=== PATIENT | male | born 1950 | race African-American/Black ===

== ENCOUNTER 2019-03-24 12:06 | Observation (INO) ==
--- NOTE | 2019-03-24 13:28 | Diag Imaging Result Doc PS360 ---
EXAM: CHEST-1 VIEW HISTORY: weakness TECHNIQUE: Chest single view COMPARISON: 10/11/2017 FINDINGS: The lungs are well expanded. The heart is not enlarged. The vessels are not distended. There are no infiltrates. No effusion identified. IMPRESSION: Negative exam. Electronically signed by Anthony Lawson 03/24/2019 1:26 PM
[2019-03-24 13:42] LABS: BASO# 0.02 X1000 (0.0-0.2); BASO% 0.4 % (0.0-0.8); EOS# 0.03 X1000 (0.0-0.7); EOS% 0.5 % (0.0-10.0); HEMATOCRIT 29.1 % (42.0-52.0); HEMOGLOBIN 10.2 g/dL (14.0-18.0); IMM GRAN# 0.03 X1000 (0.0-0.04); IMM GRAN% 0.5 % (0.0-0.5); LYMPH# 2.93 X1000 (1.2-3.4); LYMPH% 51.3 % (20.5-51.1); MCH 32.6 PG (27-31); MCHC 35.1 g/dL (33-37); MONO# 0.57 X1000 (0.11-0.59); MPV 9.3 FL (7.4-10.4); NEUT# 2.13 X1000 (1.4-6.5); NEUT% 37.3 % (42.2-75.2); PLT 294 X1000 (130-400); RBC 3.13 XMIL (4.7-6.1); RDW 12.7 % (11.5-14.5); WBC 5.71 X1000 (4.8-10.8)
[2019-03-24 13:46] LABS: ALBUMIN 4.5 g/dL (3.5-5.0); CALCIUM 8.7 mg/dL (8.8-10.2); CREATININE 1.4 mg/dL (0.7-1.2); POTASSIUM 3.2 mmol/L (3.5-5.1); TOTAL BILIRUBIN 0.5 mg/dL (0.20-1.00); TOTAL PROTEIN 8.2 g/dL (6.3-8.3)
[2019-03-24 13:53] LABS: BILIRUBIN URINE NEGATIVE (NEGATIVE); BLOOD URINE NEGATIVE (NEGATIVE); CLARITY CLEAR (CLEAR); COLOR YELLOW; GLUCOSE URINE NEGATIVE (NEGATIVE); KETONE URINE NEGATIVE (NEGATIVE); LEUKOCYTES URINE 1+ (NEGATIVE); NITRITE URINE NEGATIVE (NEGATIVE); PH URINE 6.5; PROTEIN URINE NEGATIVE (NEGATIVE); URINE BACTERIA NEGATIVE /HFP; URINE CAST NONE SEEN /LPF; URINE CRYSTAL NONE SEEN /HPF; URINE EPITHELIAL CELLS <10 /HPF (<10); URINE RBC <10 /HPF (<10); URINE SOURCE CLEAN CATCH; URINE WBC <10 /HPF (<10); URINE YEAST NONE SEEN /HPF; UROBILINOGEN URINE NORMAL
--- NOTE | 2019-03-24 13:59 | EKG Report ---
Test Performed on : 03/24/2019 1:53:09 PM Test Reason : weakness Blood Pressure : / mmHG Vent. Rate : 065 BPM Atrial Rate : 065 BPM P-R Int : 134 ms QRS Dur : 092 ms QT Int : 408 ms P-R-T Axes : 069 -34 055 degrees QTc Int : 424 ms Normal sinus rhythm. Left axis deviation Abnormal ECG When compared with ECG of 06-APR-2017 21:26, No significant change was found Unconfirmed Result
[2019-03-24 14:03] LABS: UR AMPHETAMINES QUAL NONE DETECTED (NONE DETECT); UR BARBITUATES QUAL NONE DETECTED (NONE DETECT); UR BENZODIAZEPIN QUAL NONE DETECTED (NONE DETECT); UR CANNABINOIDS QUAL NONE DETECTED (NONE DETECT); UR COCAINE QUAL NONE DETECTED (NONE DETECT); UR METHADONE QUAL NONE DETECTED (NONE DETECT); UR METHAMPHETAMINE QUAL NONE DETECTED (NONE DETECT); UR OPIATES QUAL NONE DETECTED (NONE DETECT); UR OXYCODONE QUAL NONE DETECTED (NONE DETECT); UR PCP QUAL NONE DETECTED (NONE DETECT); UR PROPOXYPHENE QUAL NONE DETECTED (NONE DETECT); UR TCA QUAL NONE DETECTED (NONE DETECT)
[2019-03-24] MEDS ORDERED: NS 1,000 ML IV ONE (15:46)
--- NOTE | 2019-03-24 17:17 | PROVIDER DOCUMENTATION ---
This chart was entered by Page Bauer Scribe, acting as scribe for Jamal Camacho MD. HPI-General Adult - General Chief Complaint: Dizziness Stated Complaint: DIZZY Time Seen by Provider: 03/24/19 12:49 Source: patient Allergies/Adverse Reactions: Patient Allergies Allergy/AdvReac Type Severity Reaction Status Date / Time No Known Allergies Allergy Verified 04/06/17 20:36 Home Medications: Home Medication List Medication Instructions Recorded Confirmed Last Taken Type Megestrol Acetate [Megace Liquid] 400 mg PO BID 03/24/19 03/24/19 Unknown History Omeprazole [Prilosec] 20 mg PO DAILY 03/24/19 03/24/19 Unknown History Sulindac 150 mg PO BID 03/24/19 03/24/19 03/23/19 History Tamsulosin [Flomax] 0.4 mg PO DAILY 03/24/19 03/24/19 03/23/19 History Tizanidine HCl [Zanaflex] 4 mg PO DAILY 03/24/19 03/24/19 Unknown History - History of Present Illness -Gen Adult Nature of Presenting Problems: 68 yobm presents to the ed with c/o dizziness, nausea, blurry vision and generalized weakness intermittent for 1 week. pt on exam is a thin male that appears to be in no distress. pt sts dizziness is worsened by bending over Location of Pain/Injury: reports: none Pain Radiation: reports: no radiation Quality of Pain: reports: none Severity: reports: moderate Onset/Duration: reports: 1 week ago Timing: reports: intermittent Context/Activities at Onset: reports: light activity Modifying Factors: worse with: movement (change of position makes dizziness worse) Associated Symptoms: reports: dizziness, EENT symptoms, fatigue, nausea, weakness. denies: arm pain, back/neck pain, chest pain, cough, fever/chills, headaches, shortness of breath, syncope, vomiting, trouble walking Similar Symptoms Previously?: No Recently seen or treated by another doctor?: No Review of Systems - Adult - REVIEW OF SYSTEMS - ADULT Constitutional: reports: fox. denies: chills, fever Eyes: reports: see HPI, blurred vision Ears, Nose, Mouth & Throat: reports: no symptoms reported Cardiovascular: denies: chest pain, palpitations, syncope Respiratory: denies: shortness of breath, wheezing Gastrointestinal: reports: see HPI, nausea. denies: abdominal pain, diarrhea, vomiting Genitourinary: reports: no symptoms reported Musculoskeletal: reports: see HPI, other (genralized weakness). denies: back pain, neck pain Integumentary: reports: no symptoms reported Neurological: reports: see HPI, dizziness/vertigo. denies: ataxia, headache/migraines, loss of balance, numbness, paresthesia, seizure, slurred sp eech, syncope, tremors Psychiatric: reports: no symptoms reported Endocrine: reports: no symptoms reported Hematologic/Lymphatic: reports: no symptoms reported Allergic/Immunologic: reports: no symptoms reported All Other Systems: Reviewed and Negative Past History - Adult - PAST MEDICAL HISTORY-ADULT Review of Records: reports: Nursing Assessment Review, Medications Reviewed Major Childhood Illnesses: reports: denies history Cardiovascular: reports: denies history Respiratory: reports: denies history Gastrointestinal: reports: denies history Genitourinary: reports: denies history Musculoskeletal: reports: denies history Hand Dominance: Right Handed Neurological: reports: other (sx to head in past) Psychiatric: reports: denies history Endocrine/Immune: reports: denies history Other Conditions: reports: denies history - PRIOR SURGERIES/PROCEDURES Surgical/Procedure History: reports: other (nose/head surgery) - IMMUNIZATION STATUS Childhood Immunizations: See Nurse Assessment Flu Vaccine: See Nurse Assessment - FAMILY HISTORY Family History: reviewed, not pertinent - SOCIAL HISTORY Smoking: quit greater than 1 year Substance Use: alcohol Alcohol Use Frequency: every day Number of drinks per typical drinking period:: 3-4 drinks Living Situation: family Physical Exam-General - PHYSICAL EXAM-ADULT Initial Vital Signs Reviewed: Yes - CONSTITUTIONAL General Appearance: alert, no apparent distress, thin - EYES Eyes: PERRL/EOMI, pink conjunctivae - HEAD, EARS, NOSE, MOUTH & THROAT HENMT: moist mucous membranes, dental decay - NECK Neck: non-tender, full range of motion, supple, normal inspection - RESPIRATORY Respiratory: chest non-tender, lungs clear, normal breath sounds - CARDIOVASCULAR Cardiovascular: normal peripheral pulses, tachycardia (113) - GASTROINTESTINAL (ABDOMEN) Abdominal Exam: normal bowel sounds, non tender, soft - LYMPHATIC Lymphatic: no adenopathy - MUSCULOSKELETAL Back Exam: normal inspection, no CVA tenderness, no vertebral tenderness Extremity: normal range of motion, non-tender, normal gait, normal inspection, no pedal edema, no calf tenderness, normal capillary refill, pelvis stable - SKIN Integumentary: normal color, normal turgor - NEUROLOGIC Neurologic: hairmasters manager II-XII nml as tested, grossly normal, no motor/sensory deficits - PSYCHIATRIC Psych/Mental Status: normal mood/affect, normal thought content, normal thought process, oriented x 3 Progress - PLAN OF CARE/RESULTS Progress/Plan/Lab Results: Vital Signs - 8 hr 03/24/19 12:13 Temperature 98.3 F Pulse Rate 113 H Respiratory Rate 18 Blood Pressure 99/66 O2 Sat by Pulse Oximetry 97 Orders Category Date Time Status ED: Orthostatic Vital Signs (E DIRECTED Care 03/24/19 12:18 Active Finger Stick Blood Sugar (ED) DIRECTED Care 03/24/19 12:18 Active CHEST-1 VIEW [RAD] Stat Exams 03/24/19 13:00 Ordered CBC WITH DIFF [HEME] Stat Lab 03/24/19 13:00 Uncollected COMPREHENSIVE METABOLIC PANEL [CHEM] Stat Lab 03/24/19 13:[address] W/POSS RFLX CULT [URINALYSIS] Stat Lab 03/24/19 13:00 Uncollected URINE DRUG SCREEN PL Stat Lab 03/24/19 13:00 Uncollected EKG [EKG] Stat Ther 03/24/19 13:00 Ordered Result Diagrams: 03/24/19 13:05 03/24/19 13:05 - REASSESSMENT Reassessment #1 Time Reassessed: 12:05 (resting in bed) Status: unchanged Reassessment #2 Time Reassessed: 15:48 Status: unchanged Reassessment Comment: pt is still orthostatic - XRAY 1 XRAY: Bilateral XRAY Study: Chest Impression: See EMR Report (EXAM: CHEST-1 VIEW HISTORY: weakness TECHNIQUE: Chest single view COMPARISON: 10/11/2017 FINDINGS: The lungs are well expanded. The heart is not enlarged. The vessels are not distended. There are no infiltrates. No effusion identified. IMPRESSION: Negative exam. Elect ronically signed by Anthony Lawson 03/24/2019 1:26 PM 03/24/19 8200 Interpreting Physician: Anthony Lawson MD Dictated Date/Time: 03/24/19 1325 cc: Jamal Camacho MD; None,PCP) - CONSULTS/PCP/HOSPITALIST Notification #1 *Consult/PCP/Hospitalist*: hospitalist dr callaway Time Discussed: 15:48 Consult Disposition: Admit, other (phone consult) Departure - Departure Date of Disposition Decision: 03/24/19 Time of Disposition Decision: 17:12 DIAGNOSIS: Weakness Hypotension Qualifiers: Hypotension type: unspecified hypotension type Qualified Code(s): I95.9 - Hypotension, unspecified Disposition: ADMITTED INPATIENT 09 Certified Medical Emergency: Emergent Condition: Good Referrals and Follow-Ups: None,PCP [Primary Care Provider] - - Critical Care Note This patient required my direct & personal management of CC.: No Attestation - Physician/ RIMA Attestation Patient care was provided by Advanced Practice Provider:: No The physician spent face to face time with patient:: Yes Advanced Practice Provider documentation review:: Supervising physician onsite and consulted in the evaluation and care of this patient. The physician did have a face to face encounter with the patient. This chart was documented by the indicated scribe, (Page Bauer Scribe) and accurately reflects the services I performed and decisions made by me, Jamal Camacho MD, as attested by the provider's signature.
[2019-03-24] MEDS ORDERED: ZOFRAN IV PRN (17:32)
[2019-03-24] MEDS ORDERED: THIAMINE 100 MG in NS 50 ML IV SCH (17:45)
[2019-03-24] MEDS ORDERED: SODIUM CHLORIDE 0.9% INJ SCH (17:45)
[2019-03-24] MEDS ORDERED: ATIVAN IV PRN (17:49)
[2019-03-24] MEDS ORDERED: M.V.I.-12 10 ML, FOLIC ACID 1 MG, MAGNESIUM SULFATE 1 GM, THIAMINE 100 MG in NS 1,000 ML IV SCH (18:30)
--- NOTE | 2019-03-24 18:36 | HISTORY AND PHYSICAL ---
PRIMARY CARE PHYSICIAN: None. REASON FOR ADMISSION: Low blood pressure. HISTORY OF PRESENT ILLNESS: This is a chronically ill appearing, 68-year-old male, with past medical history of benign prostatic hypertrophy, who presents to the emergency department complaining of dizziness. According to the patient and also some friends who are at bedside, who are at bedside, the patient has been feeling weak and dizzy for about a week. Today, because those symptoms persist, he decided to come to the emergency department. Here, vitals were checked and everything was okay, but blood pressure initially was checked and was low at 99/66. After 1 bolus of normal saline, it went up to 122/77, but when we checked again orthostatics, that dropped to 80 to 95. Upon my examination, the patient reports that he was feeling that way for a week. Family also report that he is a heavy alcohol abuser. Because of those findings and the fact that this patient has been symptomatic with this low blood pressure, the patient is going to be admitted for further evaluation and treatment. PAST MEDICAL HISTORY: Alcohol abuse. PAST SURGICAL HISTORY: Proximal displaced tibia-fibula fracture fixed surgically in September 2017. SOCIAL HISTORY: The patient lives with . According to him and friends who are at bedside, he drinks normally 9 cans of beer per day plus bourbon approximately half a pint every single day. Denies smoking any cigarettes and denies using any illicit drugs. ALLERGIES: None. FAMILY HISTORY: Notable for diabetes. REVIEW OF SYSTEMS: Reviewed. The patient reports feeling also nauseated and also some dizziness noted; some weight loss. PHYSICAL EXAMINATION: VITAL SIGNS: Temperature 98.0 degrees, heart rate 120, respiratory rate 20, blood pressure 117/58, O2 saturation 100% on 2 L nasal cannula. GENERAL: This is a chronically ill appearing, 68-year-old male, lying in bed, in no acute distress. CARDIOVASCULAR: S1, S2 heard. No murmurs, gallops, or rubs. Regular rate and rhythm. HEENT: Head is normocephalic and atraumatic. Mucous membranes dry. Poor dentition. NECK: No JVD noted. No carotid bruits. No lymphadenopathy. No thyromegaly. RESPIRATORY: Clear bilaterally to auscultation. No work of breathing or use of accessory muscles. ABDOMEN: Soft and a little bit distended. Mildly tender to palpation around the periumbilical area. EXTREMITIES: No clubbing, cyanosis, or edema. Peripheral pulses present in both legs. NEUROLOGICAL: The patient is alert, awake. Moves 4 extremities. LABORATORY DATA: Unremarkable. ASSESSMENT: 1. Hypotension, secondary to dehydration. Following the patient. 2. Alcohol abuse. PLAN: 1. This patient is basically feeling dizzy I think because of his chronic alcohol consumption. He probably has become very dehydrated. In that regard, what I am planning to do is admit him to the hospital, provide banana bag, and also continue with intravenous fluids at 125 mL/hour of normal saline. I will monitor vital signs closely. 2. Alcohol abuse/abdominal pain. 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 In that regard, I am going to order Protonix 40 mg intravenously every 12 hours. We are going to monitor this patient closely. We are going to check phosphorus, and we are going to start baclofen on this patient, and we will place him on banana bag again as noted. 3. He is at high risk of developing alcohol withdrawal, so at this point we are going to monitor this patient closely. If he develops alcohol withdrawal, we will transfer him to intensive care unit. cc: Thor Dc MD
[2019-03-24] MEDS: HEPARIN SUBQ SCH (18:53)
[2019-03-24] MEDS: NS 1,000 ML IV SCH (18:54)
[2019-03-24] MEDS: PROTONIX IV SCH (18:54)
[2019-03-25] MEDS: NS 1,000 ML IV SCH ×3 (02:53→10:15)
[2019-03-25] MEDS: PROTONIX IV SCH (06:03)
[2019-03-25] MEDS: HEPARIN SUBQ SCH (06:04)
[2019-03-25 06:30] LABS: HEMATOCRIT 28.5 % (42.0-52.0); HEMOGLOBIN 9.6 g/dL (14.0-18.0); MCH 31.8 PG (27-31); MCHC 33.7 g/dL (33-37); MCV 94.4 FL (81-99); MPV 9.8 FL (7.4-10.4); RBC 3.02 XMIL (4.7-6.1); RDW 12.9 % (11.5-14.5); WBC 5.73 X1000 (4.8-10.8)
[2019-03-25 06:56] LABS: AGAP 13; ALBUMIN 3.7 g/dL (3.5-5.0); ALKALINE PHOSPHATASE 46 U/L (32-122); BUN 8 mg/dL (8-22); CHLORIDE 109 mmol/L (98-107); COSMO 282; CREATININE 0.8 mg/dL (0.7-1.2); ESTIMATED GFR > 60; GLUCOSE 83 mg/dL (70-104); GOT 32 U/L (10-34); GPT 10 U/L (10-44); MAGNESIUM 1.8 mg/dL (1.5-2.7); POTASSIUM 3.8 mmol/L (3.5-5.1); SODIUM 143 mmol/L (136-145); TCO2 22 mmol/L (25-35)
[2019-03-25] MEDS: LIORESAL PO SCH ×2 (08:41→13:02)
--- NOTE | 2019-03-25 10:44 | Diag Imaging Result Doc PS360 ---
EXAM: US ABDOMEN-COMPLETE - 03/25/2019 HISTORY: chronic alcohol consumption TECHNIQUE: Ultrasound abdomen COMPARISON: None. FINDINGS: The liver is possibly mildly echodense diffusely which may relate to mild fatty infiltration. There is no focal liver lesion identified. There are no other abnormalities of the liver or spleen identified. The spleen is noted to be low normal in size. The gallbladder is mildly contracted, which may relate to the patient not being NPO prior to the exam. There is no other discrete gallbladder abnormality identified. There are no gallstones identified. The patient reports negative sonographic Rodas's sign. The common bile duct is normal caliber at 3 mm. Visualized portions of the pancreas are unremarkable. There are no abnormalities of the bilateral kidneys identified. Abdominal aorta and IVC appear normal caliber. IMPRESSION: Possible mild fatty infiltration of liver. No evidence of focal liver lesion. Low normal splenic size. Mildly contracted gallbladder. No evidence of gallstones. Normal caliber common bile duct at 3 mm. Electronically signed by Mikel Chavarria 03/25/2019 10:41 AM
--- NOTE | 2019-03-25 11:54 | ECHO REPORT ---
ORDER DATE: 03/24/2019 INDICATION FOR THE STUDY: Heavy alcohol use. Persistent hypotension. Weakness. FINDINGS: 1. The right atrium appears normal in size at 2.6 cm. 2. Mild tricuspid regurgitation. RV systolic pressure of 39. 3. Mild pulmonic insufficiency. 4. Normal RV size and systolic function. 5. Normal left atrial size with a volume index of 16 with a dimension of 3.4 cm. 6. No mitral valve prolapse. Mild mitral regurgitation. No evidence of mitral stenosis. 7. Normal LV size, end-diastolic dimension of 3.8. Normal wall thicknesses with a posterior and interventricular septal wall thickness 1.1 cm each. Normal LV systolic function. Estimated EF of 60% with normal wall motion. 8. The aortic valve opens well. It is trileaflet. No evidence of stenosis or insufficiency. 9. The aorta appears normal in visualized segments. 10. There is no obvious pericardial effusion on this study. cc: MD Thor Crowe MD
[2019-03-25 12:34] VITALS: BP 123/83
--- NOTE | 2019-03-25 15:41 | DISCHARGE SUMMARY ---
ADMISSION DATE: 03/24/2019 DISCHARGE DATE: 03/25/2019 ADMISSION DIAGNOSES: 1. Dizzy likely secondary to chronic alcohol abuse. 2. Hypotension. 3. Alcohol abuse and abdominal pain. 4. Alcohol withdrawal. DISCHARGE DIAGNOSES: 1. Dizziness secondary to chronic alcohol consumption and dehydration along with lower blood pressure. Treated with IV fluids. 2. Alcohol abuse and abdominal pain, probable chronic gastritis. 3. Risk of alcohol withdrawal. No withdrawal signs here. HOSPITAL COURSE: On 03/24/2019 this 68-year-old male presented to [facility] with a medical history of BPH with complaints of dizziness. He was found to be hypotensive and treated with IV fluids. Despite a couple of doses of IV fluids he still continued to have lower blood pressures. Apparently he drinks around 6 beers a day and some bourbon, about a half pint a day. Blood pressure stabilized out through the night and he was deemed appropriate for discharge home. DISCHARGE VITAL SIGNS: Temperature 98.2, heart rate 79, respiratory rate 20, blood pressure 124/64, and O2 saturation 100% on room air. He had orthostatic vital signs: Supine heart rate 72 and blood pressure 123/83. Sitting heart rate 84 and blood pressure 127/67. Standing heart rate 106 and blood pressure 137/66. DISCHARGE LAB DATA: White blood cells 5,000, hemoglobin 9, hematocrit 28, and platelet count 273. Sodium 143, potassium 3.8, BUN 8, creatinine 0.8, glucose 83, calcium 8, phosphorous 3, magnesium 1.8, bilirubin 0.70, AST 32, ALT 10, and albumin 3.7. PERTINENT IMAGING: Chest x-ray: Negative exam. Abdominal ultrasound: Fatty liver. Mildly contracted gallbladder. Echocardiogram: EF 60%. DISCHARGE MEDICATIONS: 1. Flomax 0.4 mg p.o. daily. 2. Megace 400 mg p.o. twice daily. 3. Zanaflex 4 mg p.o. daily. 4. Baclofen 20 mg p.o. t.i.d. 5. Prilosec 20 mg p.o. twice daily. DISCHARGE DIET: Regular. DISCHARGE ACTIVITY: As tolerated. DISCHARGE FOLLOW UPS: None. DISCHARGE INSTRUCTIONS: If your condition changes contact your physician and/or return to the Emergency Department. Changes may include but are not limited to shortness of breath, increased fatigue, excessive bleeding, unexplained weight loss or gain, unimaginable pain, signs or symptoms of infection. DISCHARGE DISPOSITION: Home. Dictated by NITO Little for Thor Dc MD Addendum: Patient seen and examined by myself. Agree with NITO note. It reflects my assessment and plan. Patient is being discharged from hospital in stable condition. cc: NITO Little MD [facility]
== END 2019-03-25 14:50 | disposition home or self-care (01) ==
LOC: P.ED 12:06 → P.MEDSURG 12:06
PROVIDERS: ATTEND Internal Medicine
CPT/HCPCS: 71010; 71045; 76700; 80053; 80104; 80301; 80305; 81001; 82948; 83735; 84100; 85025; 85027; 87088; 93005; 93306; 94761; 96360; 99285; A9270; C9113; G0431; G0434; G0477; J1644; J3411; J3475; J7030; S0164; XXXXX

== ENCOUNTER 2019-10-09 08:02 | Inpatient (IN) ==
[2019-10-09 08:48] LABS: BASO# 0.02 X1000 (0.0-0.2); BASO% 0.2 % (0.0-0.8); EOS% 4.5 % (0.0-10.0); HEMATOCRIT 35.5 % (42.0-52.0); HEMOGLOBIN 11.6 g/dL (14.0-18.0); IMM GRAN# 0.01 X1000 (0.0-0.04); IMM GRAN% 0.1 % (0.0-0.5); LYMPH# 2.57 X1000 (1.2-3.4); LYMPH% 28.9 % (20.5-51.1); MCH 31.4 PG (27-31); MCHC 32.7 g/dL (33-37); MCV 96.2 FL (81-99); MONO# 1.04 X1000 (0.11-0.59); MONO% 11.7 % (1.7-9.3); MPV 10.1 FL (7.4-10.4); NEUT# 4.84 X1000 (1.4-6.5); NEUT% 54.6 % (42.2-75.2); PLT 242 X1000 (130-400); RBC 3.69 XMIL (4.7-6.1); RDW 13.4 % (11.5-14.5); WBC 8.88 X1000 (4.8-10.8)
[2019-10-09 08:53] LABS: BE -1.1 mmoll (-3.0-3.0); BLOOD TYPE ARTERIAL; METHB 1.3 % (0.0-1.5); O2(CT) 14.9 mL/dL (15.0-23.0); O2HB 93.7 % (95.0-99.0); PCO2(98.6) 28 mmHg (35-45); PO2(98.6) 67 mmHg (60-100); SAMPLE BLOOD; SAO2 97.5 % (95.0-100.0); THB 11.3 g/dL (11.5-17.4); pH(98.6) 7.49 (7.35-7.45)
[2019-10-09 08:57] LABS: ALLEN TEST YES; MODALITY ROOM AIR
[2019-10-09 09:00] LABS: INR 0.89; PROTIME 12.5 Seconds (11.0-16.0)
[2019-10-09 09:01] LABS: PTT 29.3 Seconds (22.3-41.8)
[2019-10-09 09:03] LABS: ALBUMIN 5.2 g/dL (3.5-5.0); CALCIUM 10.4 mg/dL (8.8-10.2); CREATININE 1.2 mg/dL (0.7-1.2); TOTAL PROTEIN 8.5 g/dL (6.3-8.3)
[2019-10-09 09:22] LABS: SEGS 42 % (42-75)
[2019-10-09 09:23] LABS: LYMPHS 49 % (21-51); MONO 9 % (1-9)
[2019-10-09 10:12] LABS: URINE SOURCE CLEAN CATCH
[2019-10-09 10:16] LABS: CLARITY CLEAR (CLEAR); COLOR YELLOW
[2019-10-09 10:17] LABS: BILIRUBIN URINE NEGATIVE (NEGATIVE); BLOOD URINE NEGATIVE (NEGATIVE); GLUCOSE URINE NEGATIVE (NEGATIVE); KETONE URINE 15 mg/dL (NEGATIVE); PH URINE 6.5
[2019-10-09 10:18] LABS: LEUKOCYTES URINE SMALL (NEGATIVE); NITRITE URINE NEGATIVE (NEGATIVE); PROTEIN URINE 30 mg/dL (NEGATIVE)
[2019-10-09 10:26] LABS: URINE BACTERIA 1+ /HFP; URINE RBC <10 /HPF (<10)
[2019-10-09 12:41] LABS: INFLUENZA A NEGATIVE (NEGATIVE); INFLUENZA B NEGATIVE (NEGATIVE)
[2019-10-10 07:01] LABS: BASO# 0.01 X1000 (0.0-0.2); BASO% 0.3 % (0.0-0.8); EOS# 0.19 X1000 (0.0-0.7); EOS% 4.9 % (0.0-10.0); HEMOGLOBIN 9.3 g/dL (14.0-18.0); IMM GRAN# 0.01 X1000 (0.0-0.04); IMM GRAN% 0.3 % (0.0-0.5); LYMPH# 1.38 X1000 (1.2-3.4); LYMPH% 35.3 % (20.5-51.1); MCH 32.2 PG (27-31); MCHC 33.2 g/dL (33-37); MCV 96.9 FL (81-99); MONO# 0.76 X1000 (0.11-0.59); MONO% 19.4 % (1.7-9.3); MPV 9.9 FL (7.4-10.4); NEUT# 1.56 X1000 (1.4-6.5); NEUT% 39.8 % (42.2-75.2); PLT 173 X1000 (130-400); RBC 2.89 XMIL (4.7-6.1); RDW 13.2 % (11.5-14.5); WBC 3.91 X1000 (4.8-10.8)
[2019-10-10 07:02] LABS: AGAP 12; ALBUMIN 3.6 g/dL (3.5-5.0); ALKALINE PHOSPHATASE 34 U/L (32-122); BUN 6 mg/dL (8-22); CALCIUM 8.7 mg/dL (8.8-10.2); CHLORIDE 103 mmol/L (98-107); COSMO 264; ESTIMATED GFR > 60; GLUCOSE 96 mg/dL (70-104); GOT 35 U/L (10-34); GPT 10 U/L (10-44); MAGNESIUM 1.1 mg/dL (1.5-2.7); POTASSIUM 3.5 mmol/L (3.5-5.1); SODIUM 133 mmol/L (136-145); TCO2 19 mmol/L (25-35); TOTAL PROTEIN 6.4 g/dL (6.3-8.3)
[2019-10-11 06:23] LABS: BASO# 0.01 X1000 (0.0-0.2); BASO% 0.3 % (0.0-0.8); EOS# 0.32 X1000 (0.0-0.7); EOS% 8.4 % (0.0-10.0); HEMATOCRIT 28.1 % (42.0-52.0); HEMOGLOBIN 9.2 g/dL (14.0-18.0); LYMPH# 1.59 X1000 (1.2-3.4); LYMPH% 41.8 % (20.5-51.1); MCH 31.3 PG (27-31); MCHC 32.7 g/dL (33-37); MCV 95.6 FL (81-99); MONO# 0.61 X1000 (0.11-0.59); MONO% 16.1 % (1.7-9.3); MPV 10.1 FL (7.4-10.4); NEUT# 1.27 X1000 (1.4-6.5); NEUT% 33.4 % (42.2-75.2); PLT 186 X1000 (130-400); RBC 2.94 XMIL (4.7-6.1); RDW 12.8 % (11.5-14.5)
[2019-10-11 06:36] LABS: AGAP 13; ALBUMIN 3.8 g/dL (3.5-5.0); ALKALINE PHOSPHATASE 33 U/L (32-122); BUN 3 mg/dL (8-22); CALCIUM 9.1 mg/dL (8.8-10.2); CHLORIDE 103 mmol/L (98-107); COSMO 268; CREATININE 0.9 mg/dL (0.7-1.2); ESTIMATED GFR > 60; GLUCOSE 94 mg/dL (70-104); GOT 32 U/L (10-34); GPT 9 U/L (10-44); MAGNESIUM 1.6 mg/dL (1.5-2.7); SODIUM 136 mmol/L (136-145); TCO2 20 mmol/L (25-35); TOTAL PROTEIN 6.7 g/dL (6.3-8.3)
[2019-10-11 07:42] VITALS: BP 146/88
== END 2019-10-11 12:38 | disposition home or self-care (01) | DRG 872 ==
LOC: P.ED 08:02 → P.MEDSURG 13:09
PROVIDERS: ATTEND Internal Medicine